=== PATIENT | female | born 1980 | race Caucasian/White ===

== ENCOUNTER 2017-09-04 20:28 | Emergency (ER) | payer OTHER ==
[~2017-09-04] VITALS: Ht 170.2 cm; Wt 117.9 kg
[~2017-09-04 20:28] MED LIST: ALBU90OI; ATECHL PO; CYCL10 PO; ESOM20 PO; FURO20 PO; HYDACE5 PO; HYDCHL25 PO; IBUP800; MELO7.5; NAPR500 PO; NITR100CA PO; ORTHO NOVUM PO; PENVK500 PO; PHENA100 PO; POTCHL20ER PO; RXHYDACE PO; SPIHYD PO; VICODIN 5-3001 EACH; YAZ BIRTH CONTROL
[2017-09-04] MEDS ORDERED: BRINTELLIX10 MG PO (21:18)
[2017-09-04] MEDS ORDERED: ALPR.5 (21:18)
[2017-09-05] MEDS ORDERED: Tobrex5 ML BOTHEYES (00:30)
== END 2017-09-05 00:40 | disposition home or self-care (01) ==
LOC: ER 20:28
DX: S05.01XA Injury of conjunctiva and corneal abrasion without foreign body, right eye, initial encounter (principal); H10.9 Unspecified conjunctivitis; X58.XXXA Exposure to other specified factors, initial encounter; Z88.8 Allergy status to other drugs, medicaments and biological substances; Z79.899 Other long term (current) drug therapy; I10 Essential (primary) hypertension; G43.909 Migraine, unspecified, not intractable, without status migrainosus
CPT/HCPCS: 99283

== ENCOUNTER 2018-05-26 23:00 | Emergency (ER) | payer OTHER ==
[~2018-05-26] VITALS: Ht 170.2 cm; Wt 129.3 kg
[~2018-05-26 23:00] MED LIST changes: +ALPR.5 PO; +ASPI325 PO; +BENADRYL25 MG PO; +BRINTELLIX10 MG PO; +BUPR150ER PO; +K-Dur20 MEQ PO; +OLAN5 PO; +Omeprazole20 M1 PO; +Pepcid40 MG PO; +Prednisone50 MG PO; +Tobrex5 ML BOTHEYES
== END 2018-05-27 04:00 | disposition left against medical advice (07) ==
LOC: ER 23:00
DX: Z53.21 Procedure and treatment not carried out due to patient leaving prior to being seen by health care provider (principal)

== ENCOUNTER 2018-06-17 13:04 | Day surgery (SDC) | payer OTHER ==
[~2018-06-17] VITALS: Ht 170.2 cm; Wt 129.2 kg
[2018-06-17] MEDS ORDERED: ATEN25 (13:42)
== END 2018-06-17 14:30 | disposition home or self-care (01) ==
LOC: ORSCSDS 13:04
PROVIDERS: Internal Medicine Gastroenterology
PROC: 0DB58ZX Excision of Esophagus, Via Natural or Artificial Opening Endoscopic, Diagnostic (ICD-10-PCS; principal; 2018-06-17 14:15)
PROC: 0DB68ZX Excision of Stomach, Via Natural or Artificial Opening Endoscopic, Diagnostic (ICD-10-PCS; principal; 2018-06-17 14:15)
DX: K21.9 Gastro-esophageal reflux disease without esophagitis (principal); K44.9 Diaphragmatic hernia without obstruction or gangrene; K29.70 Gastritis, unspecified, without bleeding; G47.33 Obstructive sleep apnea (adult) (pediatric); E66.01 Morbid (severe) obesity due to excess calories; Z68.41 Body mass index [BMI] 40.0-44.9, adult; Z79.899 Other long term (current) drug therapy
CPT/HCPCS: 88305; 88342; J2704; J7120

== ENCOUNTER 2024-02-16 17:21 | Emergency (ER) | payer OTHER ==
[~2024-02-16] VITALS: Ht 170.2 cm; Wt 120.2 kg
[~2024-02-16 17:21] MED LIST changes: +ATEN25
[2024-02-16 17:31] VITALS: BP 149/108
[2024-02-16 18:04] LABS: BASOPHILS ABSOLUTE AUTO 0.04 K/mm3 (0.00-0.23); BASOPHILS PERCENT AUTO 0 % (0-2); EOSINOPHILS ABSOLUTE AUTO 0.27 K/mm3 (0.00-0.68); EOSINOPHILS PERCENT AUTO 3 % (0-6); Hematocrit 42.8 % (33.0-51.0); Hemoglobin 13.7 g/dL (11.5-16.0); IMMATURE GRAN ABSOLUTE AUTO 0.02 K/mm3 (0.00-0.10); IMMATURE GRAN PERCENT AUTO 0 % (0-1); LYMPHOCYTES ABSOLUTE AUTO 2.84 K/mm3 (0.84-5.20); LYMPHOCYTES PERCENT AUTO 31 % (21-46); MONOCYTES ABSOLUTE AUTO 0.48 K/mm3 (0.16-1.47); MONOCYTES PERCENT AUTO 5 % (4-13); Mean Corpuscular HGB 29.8 pg (26.0-34.0); Mean Corpuscular Volume 93 fL (80-100); NEUTROPHILS ABSOLUTE AUTO 5.41 K/mm3 (1.96-9.15); NEUTROPHILS PERCENT AUTO 60 % (41-73); Platelet Count 294 K/mm3 (150-400); RDW Standard Deviation 47.8 fL (35.1-46.3); Red Blood Cell Count 4.59 M/mm3 (3.80-5.20); White Blood Cell Count 9.06 K/mm3 (4.00-11.30)
[2024-02-16 18:36] LABS: Albumin, Blood 3.3 g/dL (3.4-5.0); Albumin/Globulin Ratio 0.9 (0.8-1.8); Bilirubin, Total 0.9 mg/dL (0.1-1.0); Bun/Creatinine Ratio 21.1 (12.0-20.0); Calcium, Blood 9.3 mg/dL (8.5-10.1); Creatinine, Blood 0.71 mg/dL (0.40-1.00); Globulin, Blood 3.8 g/dL (2.2-4.0); Potassium, Blood 3.8 mmol/L (3.5-5.5); Total Protein, Blood 7.1 g/dL (6.4-8.2)
[2024-02-16 19:57] LABS: Source, Urine Clean Catch
[2024-02-16 20:00] LABS: Appearance, Urine Hazy (Clear); Bilirubin, Urine Neg (Neg); Blood, Urine 4+ (Neg); Color, Urine Amber (P-Yellow); Glucose Qualitative, Urine Neg (Neg); Ketones, Urine 1+ (Neg); Leukocyte Esterase, Urine 1+ (Neg); Nitrite, Urine Neg (Neg); Protein, Urine 2+ (Neg); Urobilinogen, Urine NORM (Normal)
[2024-02-16 20:09] LABS: Bacteria Few /hpf; Red Blood Cells, Urine TNTC /hpf (0-2); Squamous Epithelial Cells Few /hpf (Few); White Blood Cells, Urine 0-2 /hpf (0-5)
[2024-02-16] MEDS ORDERED: Ketorolac Tromethamine 15mg Vial IM ONE (20:45)
[2024-02-16] MEDS ORDERED: OxyCODONE HCL 5 MG TAB PO ONE (20:45)
[2024-02-16] MEDS ORDERED: RX Prepack 6 Tabs Oxycodone 5mg UD ONE (20:45)
== END 2024-02-16 21:25 | disposition home or self-care (01) ==
LOC: ER 17:21
PROVIDERS: Emergency Medicine
DX: R10.2 Pelvic and perineal pain (principal); I10 Essential (primary) hypertension; G43.909 Migraine, unspecified, not intractable, without status migrainosus; R73.03 Prediabetes; Z87.891 Personal history of nicotine dependence; Z88.8 Allergy status to other drugs, medicaments and biological substances; Z79.82 Long term (current) use of aspirin; Z79.899 Other long term (current) drug therapy
CPT/HCPCS: 74177; 80053; 81001; 83690; 85025; 96374-59; 99284-25; A9270; J1885; Q9967